=== PATIENT | female | born 1955 | race Caucasian/White ===

== ENCOUNTER 2020-07-15 12:52 | Inpatient (IN) ==
[2020-07-15] MEDS ORDERED: predniSONE 10 MG TABLET PO ONE (17:02)
[2020-07-15] MEDS ORDERED: HYDROCORTISONE 100 MG VIAL IV ONE (17:04)
[2020-07-15] MEDS ORDERED: ZALEPLON 5 MG CAPSULE PO PRN (17:06)
[2020-07-15] MEDS: SODIUM CHLORIDE 0.9% 1,000 ML IV SCH (17:09)
[2020-07-15] MEDS: ONDANSETRON 4 MG/2 ML VIAL IV PRN (17:28)
[2020-07-15] MEDS ORDERED: ERTAPENEM 1,000 MG in SODIUM CHLORIDE 0.9% 100 ML IV SCH (18:00)
[2020-07-15] MEDS: POTASSIUM CHLORIDE 8 MEQ CAPSULE PO SCH (18:06)
[2020-07-15] MEDS: DOCUSATE SODIUM 100 MG CAPSULE PO SCH (20:28)
[2020-07-15] MEDS: ENOXAPARIN 40 MG/0.4 ML SYRINGE SUBCUT SCH (20:30)
[2020-07-15] MEDS ORDERED: diphenhydrAMINE CAP 25 MG CAPSULE PO SCH (22:00)
[2020-07-15] MEDS: ACETAMINOPHEN 325 MG TABLET PO PRN (22:04)
[2020-07-16] MEDS: SODIUM CHLORIDE 0.9% 1,000 ML IV SCH ×4 (01:55→14:30)
[2020-07-16 06:31] LABS: Basophils # 0.1 10*3/uL (0.0-0.2); Basophils % 0.2 % (0.0-0.8); Hematocrit 35.5 VOL% (35.7-47.0); Hemoglobin 11.9 GM/DL (12.0-16.0); Immature Granulocytes % 1.1 %; Lymphocytes # 0.8 10*3/uL (1.4-4.0); Lymphocytes % 2.8 % (21.3-54.2); Mean Corpuscular HGB Conc 33.5 GM/DL (32-36); Mean Platelet Volume 10.5 FL (9.6-12.0); Monocytes % 2.8 % (1.7-12.7); Neutrophils % 93.1 % (38.7-73.9); Platelet Count 227 T/CUMM (130-400); Red Blood Count 3.99 MC/CUMM (3.8-5.5); Red Cell Distribution Width 13.7 % (9.3-17.3); White Blood Count 26.7 T/CUMM (4-12)
[2020-07-16 06:47] LABS: Calcium 7.6 MG/DL (8.5-10.1); Osmolality,Calculated 275.7 MOS/KG (273-304); Potassium 3.6 MMOL/L (3.5-5.1)
[2020-07-16 06:56] LABS: Band Neutrophils 12 % (0-10); Hypochromasia 1+; Lymphocytes 2 % (20-55); Metamyelocytes 2 %; Segmented Neutrophils 83 % (50-85); Total Cells Counted 100
[2020-07-16 06:57] LABS: Microcytosis Slight; Platelet Estimate Normal
[2020-07-16] MEDS ORDERED: traZODone 50 MG TABLET PO PRN (08:35)
[2020-07-16] MEDS ORDERED: CYCLOBENZAPRINE 10 MG TABLET PO PRN (08:35)
[2020-07-16] MEDS ORDERED: OMEGA 3 ACID ETHYL ESTERS 1 GM CAPSULE PO SCH (09:00)
[2020-07-16] MEDS ORDERED: CETIRIZINE 10 MG TABLET PO SCH (09:00)
[2020-07-16] MEDS ORDERED: PREGABALIN 75 MG CAPSULE PO SCH (09:00)
[2020-07-16] MEDS: diphenhydrAMINE CAP 25 MG CAPSULE PO SCH ×2 (09:21→18:16)
[2020-07-16] MEDS: DOCUSATE SODIUM 100 MG CAPSULE PO SCH ×2 (09:25→21:52)
[2020-07-16] MEDS: TRIAMTERENE/HCTZ 37.5-25 MG TABLET PO SCH (09:25)
[2020-07-16] MEDS: FOLIC ACID 1 MG TABLET PO SCH (09:26)
[2020-07-16] MEDS: POTASSIUM CHLORIDE 8 MEQ CAPSULE PO SCH (09:26)
[2020-07-16] MEDS: predniSONE 5 MG TABLET PO SCH (09:27)
[2020-07-16] MEDS: PANTOPRAZOLE 40 MG TABLET PO SCH (09:27)
[2020-07-16] MEDS: MONTELUKAST 10 MG TABLET PO SCH (09:27)
[2020-07-16] MEDS: ASCORBIC ACID 500 MG TABLET PO SCH (09:28)
[2020-07-16] MEDS: CHOLECALCIFEROL 1,000 UNIT TABLET PO SCH (09:28)
[2020-07-16] MEDS: FLUTICASONE 50 MCG NASAL SPRAY 16 GM BOTTLE BOTH NARES SCH (09:37)
[2020-07-16] MEDS: MEROPENEM 500 MG in SODIUM CHLORIDE 0.9% 100 ML IV SCH ×2 (10:12→18:47)
[2020-07-16] MEDS: COLESEVELAM 625 MG TABLET PO SCH ×2 (13:01→21:55)
[2020-07-16] MEDS: OMEGA 3 ACID ETHYL ESTERS 1 GM CAPSULE PO SCH (21:50)
[2020-07-16] MEDS: PREGABALIN 75 MG CAPSULE PO SCH (21:52)
[2020-07-16] MEDS: CETIRIZINE 10 MG TABLET PO SCH (21:52)
[2020-07-16] MEDS: ENOXAPARIN 40 MG/0.4 ML SYRINGE SUBCUT SCH (21:53)
[2020-07-16] MEDS: ONDANSETRON 4 MG/2 ML VIAL IV PRN (21:57)
[2020-07-17] MEDS: diphenhydrAMINE CAP 25 MG CAPSULE PO SCH ×3 (01:54→17:24)
[2020-07-17] MEDS: MEROPENEM 500 MG in SODIUM CHLORIDE 0.9% 100 ML IV SCH ×3 (02:31→17:59)
[2020-07-17 05:54] LABS: Basophils # 0.1 10*3/uL (0.0-0.2); Basophils % 0.3 % (0.0-0.8); Eosinophils # 0.4 10*3/uL (0.0-0.87); Eosinophils % 2.3 % (0.00-10.9); Hematocrit 33.3 VOL% (35.7-47.0); Hemoglobin 10.7 GM/DL (12.0-16.0); Immature Granulocytes % 0.9 %; Immature Granulocytes Absolute 0.15 #; Lymphocytes # 3.6 10*3/uL (1.4-4.0); Lymphocytes % 21.5 % (21.3-54.2); Mean Corpuscular HGB Conc 32.1 GM/DL (32-36); Mean Corpuscular Volume 90.7 FL (87-102); Mean Platelet Volume 10.6 FL (9.6-12.0); Monocytes % 4.6 % (1.7-12.7); Neutrophils % 70.4 % (38.7-73.9); Platelet Count 202 T/CUMM (130-400); Red Blood Count 3.67 MC/CUMM (3.8-5.5); White Blood Count 16.6 T/CUMM (4-12)
[2020-07-17 06:31] LABS: Calcium 7.7 MG/DL (8.5-10.1); Osmolality,Calculated 280.1 MOS/KG (273-304)
[2020-07-17] MEDS: DOCUSATE SODIUM 100 MG CAPSULE PO SCH ×2 (09:35→21:21)
[2020-07-17] MEDS: TRIAMTERENE/HCTZ 37.5-25 MG TABLET PO SCH (09:35)
[2020-07-17] MEDS: PANTOPRAZOLE 40 MG TABLET PO SCH (09:35)
[2020-07-17] MEDS: POTASSIUM CHLORIDE 8 MEQ CAPSULE PO SCH (09:35)
[2020-07-17] MEDS: predniSONE 5 MG TABLET PO SCH (09:35)
[2020-07-17] MEDS: ASCORBIC ACID 500 MG TABLET PO SCH (09:35)
[2020-07-17] MEDS: COLESEVELAM 625 MG TABLET PO SCH ×2 (09:36→21:21)
[2020-07-17] MEDS: ESTRADIOL 1 MG TABLET PO SCH (09:36)
[2020-07-17] MEDS: CHOLECALCIFEROL 1,000 UNIT TABLET PO SCH (09:36)
[2020-07-17] MEDS: MONTELUKAST 10 MG TABLET PO SCH (09:36)
[2020-07-17] MEDS: FOLIC ACID 1 MG TABLET PO SCH (09:37)
[2020-07-17] MEDS: SODIUM CHLORIDE 0.9% 1,000 ML IV SCH ×2 (09:38→09:39)
[2020-07-17] MEDS: FLUTICASONE 50 MCG NASAL SPRAY 16 GM BOTTLE BOTH NARES SCH (10:19)
[2020-07-17] MEDS: MAGNESIUM HYDROXIDE SUSP 30 ML UDCUP PO PRN (14:52)
[2020-07-17] MEDS: ENOXAPARIN 40 MG/0.4 ML SYRINGE SUBCUT SCH (21:21)
[2020-07-17] MEDS: CETIRIZINE 10 MG TABLET PO SCH (21:22)
[2020-07-17] MEDS: PREGABALIN 75 MG CAPSULE PO SCH (21:22)
[2020-07-17] MEDS: OMEGA 3 ACID ETHYL ESTERS 1 GM CAPSULE PO SCH (21:41)
[2020-07-18] MEDS: diphenhydrAMINE CAP 25 MG CAPSULE PO SCH ×3 (01:07→17:30)
[2020-07-18] MEDS: SODIUM CHLORIDE 0.9% 1,000 ML IV SCH (01:08)
[2020-07-18] MEDS: MEROPENEM 500 MG in SODIUM CHLORIDE 0.9% 100 ML IV SCH ×3 (02:05→18:36)
[2020-07-18 05:42] LABS: Basophils # 0.1 10*3/uL (0.0-0.2); Basophils % 0.8 % (0.0-0.8); Eosinophils # 0.5 10*3/uL (0.0-0.87); Eosinophils % 3.2 % (0.00-10.9); Hematocrit 33.6 VOL% (35.7-47.0); Hemoglobin 10.9 GM/DL (12.0-16.0); Immature Granulocytes % 3.9 %; Immature Granulocytes Absolute 0.55 #; Lymphocytes # 4.4 10*3/uL (1.4-4.0); Lymphocytes % 30.9 % (21.3-54.2); Mean Corpuscular HGB Conc 32.4 GM/DL (32-36); Mean Corpuscular Volume 89.8 FL (87-102); Mean Platelet Volume 10.4 FL (9.6-12.0); Monocytes % 5.2 % (1.7-12.7); Platelet Count 247 T/CUMM (130-400); Red Blood Count 3.74 MC/CUMM (3.8-5.5); Red Cell Distribution Width 13.6 % (9.3-17.3); White Blood Count 14.2 T/CUMM (4-12)
[2020-07-18 06:06] LABS: Calcium 8.3 MG/DL (8.5-10.1); Eosinophils 3 % (0-10); Hypochromasia 1+; Lymphocytes 32 % (20-55); Microcytosis 1+; Osmolality,Calculated 276.4 MOS/KG (273-304); Platelet Estimate Adequate; Potassium 4.1 MMOL/L (3.5-5.1); Segmented Neutrophils 62 % (50-85); Total Cells Counted 100
[2020-07-18] MEDS: COLESEVELAM 625 MG TABLET PO SCH ×2 (08:47→21:31)
[2020-07-18] MEDS: CHOLECALCIFEROL 1,000 UNIT TABLET PO SCH (08:47)
[2020-07-18] MEDS: PANTOPRAZOLE 40 MG TABLET PO SCH (08:48)
[2020-07-18] MEDS: ESTRADIOL 1 MG TABLET PO SCH (08:48)
[2020-07-18] MEDS: TRIAMTERENE/HCTZ 37.5-25 MG TABLET PO SCH (08:48)
[2020-07-18] MEDS: DOCUSATE SODIUM 100 MG CAPSULE PO SCH ×2 (08:48→21:30)
[2020-07-18] MEDS: predniSONE 5 MG TABLET PO SCH (08:48)
[2020-07-18] MEDS: FOLIC ACID 1 MG TABLET PO SCH (08:49)
[2020-07-18] MEDS: ASCORBIC ACID 500 MG TABLET PO SCH (08:49)
[2020-07-18] MEDS: POTASSIUM CHLORIDE 8 MEQ CAPSULE PO SCH (09:30)
[2020-07-18] MEDS: FLUTICASONE 50 MCG NASAL SPRAY 16 GM BOTTLE BOTH NARES SCH (09:38)
[2020-07-18] MEDS: MONTELUKAST 10 MG TABLET PO SCH (09:38)
[2020-07-18] MEDS: MAGNESIUM HYDROXIDE SUSP 30 ML UDCUP PO PRN (21:30)
[2020-07-18] MEDS: CETIRIZINE 10 MG TABLET PO SCH (21:31)
[2020-07-18] MEDS: PREGABALIN 75 MG CAPSULE PO SCH (21:31)
[2020-07-18] MEDS: OMEGA 3 ACID ETHYL ESTERS 1 GM CAPSULE PO SCH (21:33)
[2020-07-18] MEDS: ENOXAPARIN 40 MG/0.4 ML SYRINGE SUBCUT SCH (21:36)
[2020-07-19] MEDS: diphenhydrAMINE CAP 25 MG CAPSULE PO SCH ×2 (01:24→08:23)
[2020-07-19] MEDS: ACETAMINOPHEN 325 MG TABLET PO PRN (01:27)
[2020-07-19] MEDS: MEROPENEM 500 MG in SODIUM CHLORIDE 0.9% 100 ML IV SCH ×2 (02:17→09:47)
[2020-07-19 03:39] LABS: Basophils # 0.2 10*3/uL (0.0-0.2); Basophils % 1.3 % (0.0-0.8); Eosinophils # 0.4 10*3/uL (0.0-0.87); Eosinophils % 2.3 % (0.00-10.9); Hematocrit 37.1 VOL% (35.7-47.0); Hemoglobin 12.2 GM/DL (12.0-16.0); Immature Granulocytes Absolute 0.98 #; Lymphocytes # 5.3 10*3/uL (1.4-4.0); Lymphocytes % 32.7 % (21.3-54.2); Mean Corpuscular HGB Conc 32.9 GM/DL (32-36); Mean Corpuscular Volume 88.5 FL (87-102); Mean Platelet Volume 9.9 FL (9.6-12.0); Monocytes % 5.9 % (1.7-12.7); NRBC # 0.02 10*3/uL; Neutrophils % 51.8 % (38.7-73.9); Platelet Count 297 T/CUMM (130-400); Red Blood Count 4.19 MC/CUMM (3.8-5.5); Red Cell Distribution Width 13.5 % (9.3-17.3); White Blood Count 16.2 T/CUMM (4-12)
[2020-07-19 04:05] LABS: Eosinophils 1 % (0-10); Lymphocytes 34 % (20-55); Nucleated Red Blood Cells 1 (0-5); Platelet Estimate Normal; Segmented Neutrophils 61 % (50-85); Total Cells Counted 100
[2020-07-19] MEDS: ASCORBIC ACID 500 MG TABLET PO SCH (08:21)
[2020-07-19] MEDS: FOLIC ACID 1 MG TABLET PO SCH (08:22)
[2020-07-19] MEDS: POTASSIUM CHLORIDE 8 MEQ CAPSULE PO SCH (08:22)
[2020-07-19] MEDS: MONTELUKAST 10 MG TABLET PO SCH (08:22)
[2020-07-19] MEDS: TRIAMTERENE/HCTZ 37.5-25 MG TABLET PO SCH (08:22)
[2020-07-19] MEDS: COLESEVELAM 625 MG TABLET PO SCH (08:22)
[2020-07-19] MEDS: PANTOPRAZOLE 40 MG TABLET PO SCH (08:23)
[2020-07-19] MEDS: CHOLECALCIFEROL 1,000 UNIT TABLET PO SCH (08:23)
[2020-07-19] MEDS: DOCUSATE SODIUM 100 MG CAPSULE PO SCH (08:23)
[2020-07-19] MEDS: ESTRADIOL 1 MG TABLET PO SCH (08:23)
[2020-07-19] MEDS: predniSONE 5 MG TABLET PO SCH (08:23)
[2020-07-19] MEDS: FLUTICASONE 50 MCG NASAL SPRAY 16 GM BOTTLE BOTH NARES SCH (09:47)
[2020-07-19 11:46] VITALS: BP 123/83
== END 2020-07-19 12:04 | disposition home or self-care (01) | DRG 690 ==
LOC: N.3E 15:35
PROVIDERS: ADMIT Internal Medicine; ATTEND Internal Medicine